=== PATIENT | male | born 1970 | race Caucasian/White ===

== ENCOUNTER 2017-08-13 10:07 | Emergency (ER) | payer BC, OTHER ==
--- NOTE | 2017-08-13 11:50 | UC ---
Respiratory Complaint HPI - HPI Summary HPI Summary: 47 yo male with facial pressure/cough/congestion x 10 days no f/c left sided jaw pain no n/v/d - History of Current Complaint Chief Complaint: UCRespiratory Stated Complaint: HEAD CONGESTION COUGH Time Seen by Provider: 08/13/17 11:45 Hx Obtained From: Patient Onset/Duration: Gradual Onset, Lasting Weeks Timing: Constant Severity Initially: Moderate Severity Currently: Moderate Pain Intensity: 6 Pain Scale Used: 0-10 Numeric Character: Cough: Productive Aggravating Factors: Recumbent Position Alleviating Factors: Nothing Associated Signs And Symptoms: Positive: Nasal Congestion, Sinus Discomfort - Allergies/Home Medications Allergies/Adverse Reactions: Allergies Allergy/AdvReac Type Severity Reaction Status Date / Time No Known Allergies Allergy Verified 08/13/17 10:23 Home Medications: Home Medications Citalopram TAB* [Celexa TAB*] 1 tab PO DAILY 08/13/17 [History Confirmed ] PMH/Surg Hx/FS Hx/Imm Hx Previously Healthy: Yes - Surgical History Surgical History: None - Family History Known Family History: Positive: Hypertension - Social History Alcohol Use: Daily Substance Use Type: None Smoking Status (MU): Never Smoked Tobacco Review of Systems Constitutional: Fatigue Skin: Negative Eyes: Negative ENT: Dental Pain, Sore Throat, Nasal Discharge, Sinus Congestion, Sinus Pain/ Tenderness Respiratory: Cough Cardiovascular: Negative Gastrointestinal: Negative Genitourinary: Negative Motor: Negative Neurovascular: Negative Musculoskeletal: Negative Neurological: Negative Psychological: Negative Is Patient Immunocompromised?: No All Other Systems Reviewed And Are Negative: Yes Physical Exam Triage Information Reviewed: Yes Appearance: Well-Appearing, No Pain Distress, Well-Nourished Vital Signs: Initial Vital Signs Temp 98.8 F 08/13/17 10:17 Pulse 83 08/13/17 10:17 Resp 15 08/13/17 10:17 BP 124/73 08/13/17 10:17 Pulse Ox 97 08/13/17 10:17 Vital Signs Reviewed: Yes Eyes: Positive: Conjunctiva Clear ENT: Positive: Hearing grossly normal, Pharyngeal erythema, Nasal congestion, Nasal drainage, Sinus tenderness, Uvula midline. Negative: Muffled voice, Hoarse voice, Dental tenderness Neck: Positive: Supple, Nontender, No Lymphadenopathy Respiratory: Positive: Lungs clear, Normal breath sounds, No respiratory distress, No accessory muscle use Cardiovascular: Positive: RRR, No Murmur Musculoskeletal: Positive: ROM Intact, No Edema Neurological: Positive: Alert Psychological Exam: Normal Skin Exam: Normal UC Diagnostic Evaluation - Laboratory O2 Sat by Pulse Oximetry: 97 - normal not hypoxic Respiratory Course/Dx - Differential Dx/Diagnosis Provider Diagnoses: acute sinusitis Discharge - Sign-Out/Discharge Documenting (check all that apply): Discharge - Discharge Plan Condition: Stable Disposition: HOME Prescriptions: Amoxicillin PO (*) [Amoxicillin 875 MG (*)] 875 mg PO BID #20 tab Benzonatate CAP* [Tessalon CAP*] 100 - 200 mg PO TID PRN #28 cap PRN Reason: Cough Fluticasone NASAL SPRAY 50MCG* [Flonase NASAL SPRAY 50MCG*] 2 spray BOTH NARES DAILY 1 Days btl Patient Education Materials: Sinusitis (ED) Forms: *Work Release Referrals: Jacobo Hernandez MD [Primary Care Provider] - 5 Days (if not better) Additional Instructions: warm facial compresses saline nasal spray 2 sprays each nostril twice daily until better - Billing Disposition and Condition Condition: STABLE Disposition: HOME
== END 2017-08-13 11:55 | disposition home or self-care (01) ==
LOC: UCEAST 10:07
DX: J01.90 Acute sinusitis, unspecified (principal); R53.83 Other fatigue; R05 Cough
CPT/HCPCS: 99202; G0463

== ENCOUNTER 2018-08-26 09:02 | Observation (INO) | payer BC ==
[2018-08-26] MEDS ORDERED: NS 0.9% 1000 ML** 1,000 ML IV ONE ×2 (09:24→10:31)
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
[2018-08-26 09:50] LABS: ABS Basophils 0 10^3/ul (0-0.2); ABS Eosinophils 0 10^3/ul (0-0.6); ABS Lymphocytes 1.7 10^3/ul (1.0-4.8); ABS Monocytes 0.4 10^3/ul (0-0.8); ABS Neutrophils 3.8 10^3/ul (1.5-7.7); ABS Nucleated RBC 0 10^3/ul; Eosinophil % 0.5 %; Hematocrit 49 % (36-46); Hemoglobin 17.2 g/dL (14.0-18.0); Lymphocyte % 28.9 %; Mean Corpuscular HGB Conc 35 g/dL (31-36); Mean Corpuscular Hemoglobin 32 pg (27-31); Mean Corpuscular Volume 91 fL (80-94); Mean Platelet Volume 8.4 fL (7.4-10.4); Nucleated Red Blood Cells % 0.2; Platelet Count 253 10^3/uL (150-450); Red Blood Count 5.34 10^6 /uL (4.18-5.48); Red Cell Distribution Width 13 % (10.5-15); White Blood Count 5.9 10^3/uL (3.5-10.8)
[2018-08-26] MEDS ORDERED: Atropine SYRINGE* 0.1 MG/ML 10 ML SYRINGE (1 MG) IV PUSH ONE (09:54)
[2018-08-26] MEDS ORDERED: ED cefTRIAXone 1 GM/50 ML 1 GM/50 ML PREMIX.SET IVPB ONE ×2 (09:54→11:13)
[2018-08-26 10:11] LABS: ALT 19 U/L (7-52); AST 20 U/L (13-39); Albumin 4.3 g/dL (3.2-5.2); Albumin/Globulin Ratio 1.7 (1-3); Alkaline Phosphatase 57 U/L (34-104); Anion Gap 6 mmol/L (2-11); BUN/Creatinine Ratio 15.6 (8-20); Blood Urea Nitrogen 12 mg/dL (6-24); CO2 Carbon Dioxide 26 mmol/L (22-32); Calcium 9.3 mg/dL (8.6-10.3); Chloride 104 mmol/L (101-111); EGFR African American 130.5 (>60); EGFR Non-African American 107.8 (>60); Globulin 2.5 g/dL (2-4); Glucose 162 mg/dL (70-100); Potassium 3.6 mmol/L (3.5-5.0); Sodium 136 mmol/L (135-145); Total Protein 6.8 g/dL (6.4-8.9)
[2018-08-26 10:23] LABS: Alcohol < 10 mg/dL (<10)
[2018-08-26 10:38] LABS: TSH (Thyroid Stimulating Horm) 1.83 mcIU/mL (0.34-5.60)
[2018-08-26 11:10] LABS: Activated Partial Thrombo Time 28.2 seconds (26.0-36.3); INR 0.97 (0.77-1.02)
[2018-08-26] MEDS ORDERED: Iohexol 300* (CONTRAST) 10 ML SDV ONE ×3 (11:13→16:01)
[2018-08-26] MEDS ORDERED: Midazolam* 1 MG/ML 5 ML VIAL (5 MG) ONE ×3 (11:13→15:48)
[2018-08-26] MEDS ORDERED: fentaNYL* 50 MCG/ML 2 ML VIAL (100 MCG VIAL) ONE ×2 (11:13→15:02)
[2018-08-26] MEDS ORDERED: Lidocaine 1% INJ* 10 MG/ML 30 ML SDV ONE ×3 (11:22→16:06)
[2018-08-26 11:34] LABS: Urine Appearance Cloudy; Urine Bilirubin Negative (Negative); Urine Blood Negative (Negative); Urine Color Yellow; Urine Glucose Negative (Negative); Urine Ketones Negative (Negative); Urine Nitrite Negative (Negative); Urine Protein Negative (Negative); Urine Specific Gravity 1.015 (1.010-1.030); Urine Urobilinogen Negative (Negative)
[2018-08-26] MEDS ORDERED: ceFAZolin VIAL(*) 1 GM in NS 0.9% 50 ML* 50 ML IVPB ONE (12:52)
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
--- NOTE | 2018-08-26 14:43 | ECHO ---
Patient: WAYNE RIVERA [facility] Rec#: [id number] : 1970 Date: 08/26/2018 Age: 48y Height: 173 cm / 68.1 in Weight: 64 kg / 141.1 lbs Sex: M BSA: 1.76 Room#: ICU 2 Admit Date#: 08/26/2018 Type: Inpatient Referring: Kathy Conroy MD Reading: Kathy Conroy MD Senior Java Architect: Keely Lerma,NAYANCS,RDMS CC: Jacobo Hernandez MD Transthoracic Echocardiogram Indication: Syncope BP: 134/76 HR: 82 Rhythm: NSR Findings History: Murmur, smoker Technical Comments: The study quality is fair. Left Ventricle: The left ventricular chamber size is normal. There is no left ventricular hypertrophy. Global left ventricular wall motion and contractility are within normal limits. The estimated ejection fraction is 60-65%. Normal left ventricular diastolic filling is observed. Left Atrium: The left atrial chamber size is normal. Right Ventricle: The right ventricular chamber size and systolic function are within normal limits. Right Atrium: The right atrial cavity size is normal. Aortic Valve: There is no evidence of aortic valve thickening. There is no evidence of aortic regurgitation. There is no evidence of aortic stenosis. Mitral Valve: The mitral valve leaflets are mildly thickened. There is no evidence of mitral regurgitation. There is no evidence of mitral stenosis. Tricuspid Valve: The tricuspid valve leaflets are normal. There is trace tricuspid regurgitation. Unable to estimate the right ventricular systolic pressure. Pulmonic Valve: The pulmonic valve structure is not well visualized. There is a trace pulmonic regurgitation. Pericardium: There is no significant pericardial effusion. Aorta: The aortic root appears normal. The aortic arch is not well visualized. Pulmonary Artery: The main pulmonary artery is not well visualized. Conclusions The left ventricular chamber size is normal. Global left ventricular wall motion and contractility are within normal limits. The estimated ejection fraction is 60-65%. The right ventricular chamber size and systolic function are within normal limits. All valves are structurally normal with normal function. There is trace tricuspid regurgitation. No prior echo to compare. Measurements Name Value Normal Range RVIDd (AP) 2D 2.9 cm (0.9 - 2.6) RVDdMajor (2D) 2.8 cm (2.2 - 4.4) RAd ISD 4CH 4.6 cm (3.4 - 4.9) RA (A4C)W 4.2 cm (2.9 - 4.6) IVSd (2D) 0.8 cm (0.6 - 1) LVPWd (2D) 0.8 cm (0.6 - 1) LVIDd (2D) 4.3 cm (3.6 - 5.4) LVIDs (2D) 2.6 cm - LV FS (2D) 40 % (25 - 45) Aortic Annulus 1.9 cm (1.4 - 2.6) Ao root diameter (2D) 2.7 cm (2.1 - 3.5) Ascending Ao 2.5 cm (2.1 - 3.4) LA dimension (AP) 2D 2.8 cm (2.3 - 3.8) LAd ISD 4CH 4.6 cm (2.9 - 5.3) LA ISD 4CH W 3.5 cm (2.5 - 4.5) Name Value Normal Range LA ESV BP (A/L) index 20 ml/m2 - Name Value Normal Range MV E-wave Vmax 1 m/sec - MV deceleration time 190 msec - MV A-wave Vmax 0.8 m/sec - MV E:A ratio 1.3 ratio - P. vein S-wave Vmax 0.7 m/sec - P. vein D-wave Vmax 0.6 m/sec - P. vein S:D Vmax ratio 1.1 ratio - P. vein A-wave duration 71 msec - LV septal e' Vmax 0.14 m/sec - LV lateral e' Vmax 0.16 m/sec - LV E:e' septal ratio 7 ratio - LV E:e' lateral ratio 6 ratio - Name Value Normal Range AV Vmax 1.7 m/sec - AV VTI 32 cm - AV peak gradient 11 mmHg - AV mean gradient 6 mmHg - LVOT Vmax 1.4 m/sec - LVOT VTI 28 cm - LVOT peak gradient 8 mmHg - LVOT mean gradient 4 mmHg - EVIE Vmax 1.3 m/sec - Name Value Normal Range RAP 8 mmHg - IVC diameter 2.1 cm - Name Value Normal Range PV Vmax 0.9 m/sec - PV peak gradient 3.2 mmHg -
[2018-08-26] MEDS: NS 0.9% 1000 ML** 1,000 ML IV SCH (21:00)
[2018-08-27] MEDS: NS 0.9% 1000 ML** 1,000 ML IV SCH (06:16)
[2018-08-27 07:49] VITALS: BP 116/76
[2018-08-27] MEDS ORDERED: Fluticasone NASAL SPRAY 50MCG* 16 gm SPRAY BTL BOTH NARES SCH (09:00)
[2018-08-27] MEDS ORDERED: Citalopram TAB* 40 MG PO SCH (09:00)
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
[2018-08-27] MEDS ORDERED: cefTRIAXone(*) 2 GM in NS 0.9% 100 ML* 100 ML IVPB SCH (11:00)
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
== END 2018-08-27 12:17 | disposition home or self-care (01) ==
LOC: ED 09:02 → ICU 10:53
PROVIDERS: ADMIT Internal Medicine; ATTEND Hospitalist
DX: R00.1 Bradycardia, unspecified (principal); R55 Syncope and collapse; I45.5 Other specified heart block; J30.9 Allergic rhinitis, unspecified; F32.9 Major depressive disorder, single episode, unspecified; F17.210 Nicotine dependence, cigarettes, uncomplicated; F41.9 Anxiety disorder, unspecified; R11.0 Nausea; A69.20 Lyme disease, unspecified; R41.0 Disorientation, unspecified; Z04.1 Encounter for examination and observation following transport accident
CPT/HCPCS: 33208; 36415; 71045; 71046; 80053; 80320; 81003; 83605; 83735; 84443; 84484; 85025; 85379; 85610; 85730; 86618; 93005; 93306; 96361; 96372; 96374; 96375; 99156; 99157; 99285; C1785; C1892; C1898; G0378; G0480; J0690; J0696; J2250; J3010

== ENCOUNTER 2019-05-05 09:31 | Emergency (ER) | payer BC, OTHER ==
[2019-05-05 09:59] VITALS: BP 147/89
--- NOTE | 2019-05-05 11:25 | UC ---
Throat Pain/Nasal Min HPI - HPI Summary HPI Summary: 49 year old male with PMH + for MH presents with sinus pain/ pressure x Friday. Patient states he noted symptoms ~ 10 days ago, URI symptoms, mild, but on Friday starting having increased sinus pain, pressure. + fatigue, body aches. Patient has tried multiple OTC medications without benefit. No fever, + chills. R ear feels plugged. Denies recent ABX medication. - History of Current Complaint Chief Complaint: UCGeneralIllness Stated Complaint: SINUS ISSUES Time Seen by Provider: 05/05/19 10:55 Hx Obtained From: Patient Onset/Duration: Sudden Onset, Lasting Days - 5 Severity: Severe Pain Intensity: 8 Pain Scale Used: 0-10 Numeric Cough: None Associated Signs & Symptoms: Positive: Sinus Discomfort. Negative: Nasal Discharge, Fever - Allergies/Home Medications Allergies/Adverse Reactions: Allergies Allergy/AdvReac Type Severity Reaction Status Date / Time No Known Allergies Allergy Verified 05/05/19 09:58 PMH/Surg Hx/FS Hx/Imm Hx Previously Healthy: Yes - Surgical History Surgical History: Yes - Family History Known Family History: Positive: Hypertension - Social History Occupation: Employed Full-time Alcohol Use: Weekly Alcohol Amount: 3 drinks daily Substance Use Type: None Smoking Status (MU): Former Smoker Have You Smoked in the Last Year: No - Immunization History Most Recent Influenza Vaccination: fall 2017 Most Recent Pneumonia Vaccination: never Review of Systems All Other Systems Reviewed And Are Negative: Yes Constitutional: Positive: Chills, Fatigue ENT: Positive: Sore Throat, Ear Ache, Nasal Discharge, Sinus Congestion, Sinus Pain/Tenderness Respiratory: Positive: Negative Genitourinary: Positive: Negative Motor: Positive: Negative Neurovascular: Positive: Negative Musculoskeletal: Positive: Myalgia Neurological: Positive: Negative Is Patient Immunocompromised?: No Physical Exam Triage Information Reviewed: Yes Appearance: No Pain Distress, Well-Nourished, Ill-Appearing - mild Vital Signs: Initial Vital Signs Temp 99.1 F 05/05/19 09:55 Pulse 98 05/05/19 09:55 Resp 18 05/05/19 09:55 BP 147/89 05/05/19 09:55 Pulse Ox 98 05/05/19 09:55 Vital Signs Reviewed: Yes Eyes: Positive: Conjunctiva Clear ENT: Positive: Hearing grossly normal, Pharynx normal, Nasal congestion, Nasal drainage, TMs normal - left, TM red - minimal on right., Sinus tenderness - b/l frontal, Uvula midline. Negative: Pharyngeal erythema, TM bulging, TM dull, Tonsillar swelling, Tonsillar exudate Neck: Positive: Supple, Nontender, No Lymphadenopathy. Negative: Nuchal Rigidity, Enlarged Nodes @ Respiratory: Positive: Chest non-tender, Lungs clear, Normal breath sounds, No respiratory distress, No accessory muscle use. Negative: Respiratory distress, Crackles, Rhonchi, Stridor, Wheezing Psychological Exam: Normal Skin Exam: Normal Throat Pain/Nasal Course/Dx - Course Course Of Treatment: Sinusitis: - Increase fluid intake - Probiotics to help with gut esperanza while taking antibiotics - Antibiotics as directed for sinus symptoms. - Over the counter medications as needed for symptoms - Precautions to prevent spread to family. - Differential Dx/Diagnosis Differential Diagnosis/HQI/PQRI: Sinusitis, URI Provider Diagnosis: Sinusitis Discharge ED - Sign-Out/Discharge Documenting (check all that apply): Patient Departure All imaging exams completed and their final reports reviewed: No Studies - Discharge Plan Condition: Fair Disposition: HOME Prescriptions: Amoxicillin/Clavulanate TAB* [Augmentin TAB 875*] 875 mg PO BID #20 tab Patient Education Materials: Sinusitis (ED) Referrals: Jacobo Hernandez MD [Primary Care Provider] - Additional Instructions: Sinusitis: - Increase fluid intake - Probiotics to help with gut esperanza while taking antibiotics - Antibiotics as directed for sinus symptoms. - Over the counter medications as needed for symptoms - Precautions to prevent spread to family. - Billing Disposition and Condition Condition: FAIR Disposition: Home
== END 2019-05-05 11:31 | disposition home or self-care (01) ==
LOC: UCEAST 09:31
DX: J32.9 Chronic sinusitis, unspecified (principal); J02.9 Acute pharyngitis, unspecified; M79.10 Myalgia, unspecified site; R53.83 Other fatigue; Z87.891 Personal history of nicotine dependence
CPT/HCPCS: 99212; G0463